=== PATIENT | female | born 1960 | race Two or more races ===

== ENCOUNTER 2021-06-07 16:44 | Inpatient (IN) | payer OTHER ==
[~2021-06-07] VITALS: Ht 154.9 cm; Wt 57.0 kg
[2021-06-07 19:53] LABS: BASOPHILS % (AUTO) 0.4 % (0.0-2.0); EOSINOPHILS % (AUTO) 0.9 % (1.0-6.0); HEMATOCRIT 37.3 % (36-46); HEMOGLOBIN 12.5 g/dL (12.0-16.0); LYMPHOCYTES # (AUTO) 1.6 K/uL (1.0-4.8); LYMPHOCYTES % (AUTO) 22.5 % (22.0-44.0); MEAN CORPUSCULAR HEMOGLOBIN 27.7 pg (26.0-34.0); MEAN CORPUSCULAR HGB CONC 33.4 G/dL (31.0-37.0); MEAN CORPUSCULAR VOLUME 83 fL (80-100); MONOCYTES # (AUTO) 0.5 K/uL (0.1-1.0); MONOCYTES % (AUTO) 6.8 % (2.0-9.0); NEUTROPHILS % (AUTO) 69.4 % (40.0-70.0); PLATELET COUNT (AUTO) 295 K/uL (150-450); RED CELL DISTRIBUTION WIDTH 14.8 % (11.5-14.5)
[2021-06-07] MEDS ORDERED: VANCOMYCIN HCL 1 GM/D5% WATER 200 ML IV ONE (20:00)
[2021-06-07] MEDS ORDERED: PIPERACILLIN SODIUM/TAZOBACTAM 4.5 GM in DEXTROSE 5%-WATER 100 ML IV ONE (20:00)
[2021-06-07 20:10] LABS: ANION GAP 7 mmol/L (8-16); CALCIUM, TOTAL 9.3 mg/dL (8.8-10.5); CARBON DIOXIDE 29 mmol/L (22-29); CHLORIDE 99 mmol/L (98-107); CREATININE 0.93 mg/dL (0.60-1.30); GLOMERULAR FILTR. RATE CALC > 60 mL/min (>60); GLUCOSE,RANDOM 155 mg/dL (70-110); SODIUM SERUM 135 mmol/L (136-145); UREA NITROGEN, BLOOD 18 mg/dL (7-18)
[2021-06-07 20:16] LABS: ALANINE AMINOTRANSFERASE 19 U/L (12-78); ALBUMIN 3.3 g/dL (3.4-5.0); ALKALINE PHOSPHATASE 153 U/L (46-116); ASPARTATE AMINOTRANSFERASE 16 U/L (15-37); BILIRUBIN,TOTAL 0.5 mg/dL (0.1-1.0); TOTAL PROTEIN, SERUM 8.4 g/dL (6.4-8.2)
[2021-06-07 20:19] LABS: LACTIC ACID 1.6 mmol/L (0.4-2.0)
[2021-06-07 21:36] LABS: COVID AG,FIA SOURCE NASAL SWAB
[2021-06-07] MEDS ORDERED: DEXTROSE 50%-WATER 25 GM/50 ML SYRINGE IVP PRN (22:00)
[2021-06-07] MEDS ORDERED: MAGNESIUM HYDROXIDE SUSPENSION 30 ML UDCUP PO PRN (22:00)
[2021-06-07] MEDS ORDERED: ACETAMINOPHEN 325 MG TABLET PO PRN (22:00)
[2021-06-07] MEDS ORDERED: ONDANSETRON HCL 4 MG/2 ML VIAL IVP PRN (22:00)
[2021-06-08] MEDS: HEPARIN SODIUM,PORCINE 5,000 UNITS/ML VIAL SQ SCH ×4 (00:34→23:15)
[2021-06-08] MEDS ORDERED: PIPERACILLIN/TAZO 3.375 GM/D5W 50 ML IV ONE (05:30)
[2021-06-08] MEDS ORDERED: VANCOMYCIN HCL 750 MG in DEXTROSE 5%-WATER 250 ML IV ONE (07:30)
[2021-06-08] MEDS: FAMOTIDINE 20 MG TABLET PO SCH (08:50)
[2021-06-08] MEDS: DOCUSATE SODIUM 100 MG CAPSULE PO SCH ×2 (08:50→20:59)
[2021-06-08] MEDS: VANCOMYCIN HCL 750 MG in DEXTROSE 5%-WATER 250 ML IV SCH ×2 (08:51→21:00)
[2021-06-08] MEDS: PIPERACILLIN/TAZO 3.375 GM/D5W 50 ML IV SCH ×2 (11:15→16:01)
[2021-06-08] MEDS: OxyCODONE HCL/ACETAMINOPHEN 5-325 MG TABLET PO PRN ×2 (11:15→18:18)
[2021-06-08 13:41] LABS: GLUCOSE,POINT OF CARE 222 MG/DL (70-110)
[2021-06-08] MEDS: INSULIN LISPRO 100 UNITS/ML SQ PRN ×3 (13:43→21:37)
[2021-06-08] MEDS ORDERED: FLUO20CA36 PO (18:10)
[2021-06-08] MEDS ORDERED: FLUT16H NASAL (18:10)
[2021-06-08] MEDS ORDERED: ERTU15TA PO (18:10)
[2021-06-08] MEDS ORDERED: PREG75 PO (18:10)
[2021-06-08] MEDS ORDERED: OMEP20 PO (18:10)
[2021-06-08] MEDS ORDERED: LISI-659 PO (18:10)
[2021-06-08 18:21] LABS: GLUCOSE,POINT OF CARE 147 MG/DL (70-110)
[2021-06-08] MEDS ORDERED: SODIUM CHLORIDE 0.9% 500 ML IV ONE (20:57)
[2021-06-08] MEDS: PREGABALIN 75 MG CAPSULE PO SCH (21:00)
[2021-06-08 21:02] VITALS: BP 117/68
[2021-06-08] MEDS: FLUTICASONE PROPIONATE 50 MCG/SPRAY 16 GM NASAL SPRAY NASAL SCH (23:15)
[2021-06-09] MEDS: PIPERACILLIN/TAZO 3.375 GM/D5W 50 ML IV SCH ×5 (00:02→23:39)
[2021-06-09] MEDS ORDERED: PNEUMOCOCCAL VACCINE POLYVALENT 0.5 ML VIAL [PPSV23] IM. ONE (00:45)
[2021-06-09 05:08] VITALS: BP 103/71
[2021-06-09 07:33] LABS: BASOPHILS % (AUTO) 0.4 % (0.0-2.0); EOSINOPHILS % (AUTO) 2.5 % (1.0-6.0); HEMATOCRIT 32.5 % (36-46); HEMOGLOBIN 11.1 g/dL (12.0-16.0); LYMPHOCYTES # (AUTO) 1.6 K/uL (1.0-4.8); LYMPHOCYTES % (AUTO) 25.3 % (22.0-44.0); MEAN CORPUSCULAR HGB CONC 34.1 G/dL (31.0-37.0); MEAN CORPUSCULAR VOLUME 82 fL (80-100); MONOCYTES # (AUTO) 0.6 K/uL (0.1-1.0); MONOCYTES % (AUTO) 9.7 % (2.0-9.0); NEUTROPHILS # (AUTO) 3.9 K/uL (1.8-7.7); NEUTROPHILS % (AUTO) 62.1 % (40.0-70.0); PLATELET COUNT (AUTO) 248 K/uL (150-450); RED BLOOD CELL COUNT(AUTO) 3.95 MIL/uL (4.00-5.20); RED CELL DISTRIBUTION WIDTH 14.7 % (11.5-14.5)
[2021-06-09 07:46] LABS: ANION GAP 10 mmol/L (8-16); CARBON DIOXIDE 28 mmol/L (22-29); CHLORIDE 100 mmol/L (98-107); CREATININE 0.83 mg/dL (0.60-1.30); GLOMERULAR FILTR. RATE CALC > 60 mL/min (>60); GLUCOSE,RANDOM 155 mg/dL (70-110); POTASSIUM 4.2 mmol/L (3.5-5.1); SODIUM SERUM 138 mmol/L (136-145); UREA NITROGEN, BLOOD 17 mg/dL (7-18); VANCOMYCIN,RANDOM 16.1 mcg/mL (25.0-50.0)
[2021-06-09] MEDS: HEPARIN SODIUM,PORCINE 5,000 UNITS/ML VIAL SQ SCH ×3 (08:00→23:39)
[2021-06-09 08:11] VITALS: BP 90/59
[2021-06-09 08:26] LABS: GLUCOMETER DEV NAME(LOC) 6N.1; GLUCOSE,POINT OF CARE 157 MG/DL (70-110)
[2021-06-09 08:26] LABS: GLUCOMETER DEV NAME(LOC) 6N.1; GLUCOSE,POINT OF CARE 151 MG/DL (70-110)
[2021-06-09] MEDS ORDERED: SODIUM CHLORIDE 0.9% 1,000 ML IV ONE (08:30)
[2021-06-09] MEDS: DOCUSATE SODIUM 100 MG CAPSULE PO SCH ×2 (08:32→20:18)
[2021-06-09] MEDS: FAMOTIDINE 20 MG TABLET PO SCH (08:32)
[2021-06-09] MEDS: PREGABALIN 75 MG CAPSULE PO SCH ×2 (08:32→20:18)
[2021-06-09] MEDS: OMEPRAZOLE 20 MG CAPSULE PO SCH (08:32)
[2021-06-09] MEDS: FLUoxetine HCL 20 MG CAPSULE PO SCH (08:32)
[2021-06-09] MEDS: VANCOMYCIN HCL 750 MG in DEXTROSE 5%-WATER 250 ML IV SCH ×2 (08:33→20:18)
[2021-06-09] MEDS: FLUTICASONE PROPIONATE 50 MCG/SPRAY 16 GM NASAL SPRAY NASAL SCH ×2 (08:34→20:18)
[2021-06-09] MEDS ORDERED: RINGERS SOLUTION,LACTATED 1,000 ML IV ONE (09:15)
[2021-06-09] MEDS ORDERED: LIDOCAINE/PF 1% 30 ML VIAL ONE (09:23)
[2021-06-09] MEDS ORDERED: BUPIVACAINE HCL/PF 0.5% 30 ML VIAL ONE (09:23)
[2021-06-09] MEDS ORDERED: ETHYL ALCOHOL 62% ANTISEPTIC NASAL INHALANT 0.6 ML AMPUL NASAL ONE (10:00)
[2021-06-09] MEDS: SODIUM CHLORIDE 0.9% 1,000 ML IV SCH ×2 (11:15→20:18)
[2021-06-09] MEDS ORDERED: PROPOFOL 1% 20 ML VIAL IVP ONE (12:00)
[2021-06-09] MEDS ORDERED: MIDAZOLAM HCL 2 MG/2 ML VIAL IVP ONE (12:00)
[2021-06-09] MEDS ORDERED: 0.9% SODIUM CHLORIDE 10 ML VIAL IVP ONE (12:00)
[2021-06-09] MEDS ORDERED: FentaNYL CITRATE PF 100 MCG/2 ML VIAL IVP ONE (12:00)
[2021-06-09] MEDS ORDERED: LIDOCAINE/PF 2% 5 ML VIAL IM ONE (12:00)
[2021-06-09] MEDS ORDERED: VANCOMYCIN HCL 1 GM/VIAL ONE (12:03)
[2021-06-09] MEDS ORDERED: SEMA0.25 SQ (12:12)
[2021-06-09] MEDS ORDERED: ATOR-2 PO (12:12)
[2021-06-09] MEDS ORDERED: ACET-541 PO (12:12)
[2021-06-09] MEDS ORDERED: FLUT1AER5 IH (12:12)
[2021-06-09] MEDS ORDERED: FentaNYL CITRATE PF 100 MCG/2 ML VIAL IVP PRN (12:15)
[2021-06-09] MEDS ORDERED: HYDROmorphone 2 MG/ML VIAL IVP PRN (12:15)
[2021-06-09] MEDS ORDERED: SODIUM CHLORIDE 0.9% 1,000 ML ONE (13:07)
[2021-06-09 14:27] VITALS: BP 112/60
[2021-06-09] MEDS: OxyCODONE HCL/ACETAMINOPHEN 5-325 MG TABLET PO PRN ×2 (17:28→21:42)
[2021-06-09 18:37] LABS: GLUCOMETER DEV NAME(LOC) 6N.2; GLUCOSE,POINT OF CARE 113 MG/DL (70-110)
[2021-06-09 18:37] LABS: GLUCOMETER DEV NAME(LOC) 6N.2; GLUCOSE,POINT OF CARE 146 MG/DL (70-110)
[2021-06-09] MEDS: OXYGEN THERAPY IH SCH (20:00)
[2021-06-09] MEDS: INSULIN LISPRO 100 UNITS/ML SQ PRN (20:25)
[2021-06-09 20:39] VITALS: BP 103/60
[2021-06-10 04:40] VITALS: BP 114/61
[2021-06-10] MEDS: PIPERACILLIN/TAZO 3.375 GM/D5W 50 ML IV SCH ×4 (07:14→23:38)
[2021-06-10] MEDS: SODIUM CHLORIDE 0.9% 1,000 ML IV SCH ×2 (07:31→16:21)
[2021-06-10] MEDS: MORPHINE SULFATE 2 MG/ML SYRINGE IVP PRN ×3 (07:31→16:22)
[2021-06-10] MEDS: VANCOMYCIN HCL 750 MG in DEXTROSE 5%-WATER 250 ML IV SCH (07:31)
[2021-06-10] MEDS: OXYGEN THERAPY IH SCH ×2 (08:00→20:00)
[2021-06-10 08:01] LABS: ANION GAP 7 mmol/L (8-16); CALCIUM, TOTAL 8.8 mg/dL (8.8-10.5); CARBON DIOXIDE 29 mmol/L (22-29); CHLORIDE 103 mmol/L (98-107); CREATININE 0.81 mg/dL (0.60-1.30); GLOMERULAR FILTR. RATE CALC > 60 mL/min (>60); GLUCOSE,RANDOM 120 mg/dL (70-110); POTASSIUM 4.3 mmol/L (3.5-5.1); SODIUM SERUM 139 mmol/L (136-145); UREA NITROGEN, BLOOD 16 mg/dL (7-18)
[2021-06-10 08:02] LABS: GLUCOMETER DEV NAME(LOC) 6N.1; GLUCOSE,POINT OF CARE 153 MG/DL (70-110)
[2021-06-10 08:02] LABS: GLUCOMETER DEV NAME(LOC) 6N.1; GLUCOSE,POINT OF CARE 105 MG/DL (70-110)
[2021-06-10 08:22] VITALS: BP 101/57
[2021-06-10] MEDS: OMEPRAZOLE 20 MG CAPSULE PO SCH (09:24)
[2021-06-10] MEDS: FAMOTIDINE 20 MG TABLET PO SCH (09:24)
[2021-06-10] MEDS: PREGABALIN 75 MG CAPSULE PO SCH ×2 (09:24→19:47)
[2021-06-10] MEDS: FLUoxetine HCL 20 MG CAPSULE PO SCH (09:24)
[2021-06-10] MEDS: DOCUSATE SODIUM 100 MG CAPSULE PO SCH ×2 (09:24→19:47)
[2021-06-10] MEDS: FLUTICASONE PROPIONATE 50 MCG/SPRAY 16 GM NASAL SPRAY NASAL SCH ×2 (09:25→19:49)
[2021-06-10] MEDS: HEPARIN SODIUM,PORCINE 5,000 UNITS/ML VIAL SQ SCH ×3 (09:25→23:38)
[2021-06-10] MEDS: TIOTROPIUM BROMIDE 18 MCG/INH HANDIHALER [5] IH SCH (09:26)
[2021-06-10] MEDS: OxyCODONE HCL/ACETAMINOPHEN 5-325 MG TABLET PO PRN ×3 (10:08→19:47)
[2021-06-10 11:57] LABS: GLUCOMETER DEV NAME(LOC) 6N.1; GLUCOSE,POINT OF CARE 205 MG/DL (70-110)
[2021-06-10] MEDS: INSULIN LISPRO 100 UNITS/ML SQ PRN ×2 (12:10→19:48)
[2021-06-10 15:34] VITALS: BP 92/50
[2021-06-10 15:48] VITALS: BP 105/64
[2021-06-10 17:52] LABS: GLUCOMETER DEV NAME(LOC) 6N.2; GLUCOSE,POINT OF CARE 116 MG/DL (70-110)
[2021-06-10 19:58] VITALS: BP 107/62
[2021-06-10] MEDS: VANCOMYCIN HCL 1 GM/D5% WATER 200 ML IV SCH (20:00)
[2021-06-11] MEDS: OxyCODONE HCL/ACETAMINOPHEN 5-325 MG TABLET PO PRN ×2 (04:51→20:10)
[2021-06-11] MEDS: PIPERACILLIN/TAZO 3.375 GM/D5W 50 ML IV SCH ×3 (04:55→17:47)
[2021-06-11] MEDS: SODIUM CHLORIDE 0.9% 1,000 ML IV SCH ×2 (04:55→17:47)
[2021-06-11 04:56] VITALS: BP 133/64
[2021-06-11] MEDS: MORPHINE SULFATE 2 MG/ML SYRINGE IVP PRN ×5 (05:10→21:40)
[2021-06-11 06:40] LABS: ANION GAP 1 mmol/L (8-16); CALCIUM, TOTAL 9.3 mg/dL (8.8-10.5); CARBON DIOXIDE 30 mmol/L (22-29); CHLORIDE 104 mmol/L (98-107); CREATININE 0.86 mg/dL (0.60-1.30); GLOMERULAR FILTR. RATE CALC > 60 mL/min (>60); GLUCOSE,RANDOM 139 mg/dL (70-110); POTASSIUM 5.1 mmol/L (3.5-5.1); SODIUM SERUM 135 mmol/L (136-145); UREA NITROGEN, BLOOD 14 mg/dL (7-18)
[2021-06-11 07:47] LABS: GLUCOMETER DEV NAME(LOC) 6N.2; GLUCOSE,POINT OF CARE 143 MG/DL (70-110)
[2021-06-11 07:47] LABS: GLUCOMETER DEV NAME(LOC) 6N.2; GLUCOSE,POINT OF CARE 128 MG/DL (70-110)
[2021-06-11] MEDS: OXYGEN THERAPY IH SCH (08:00)
[2021-06-11 08:02] VITALS: BP 137/61
[2021-06-11] MEDS: PREGABALIN 75 MG CAPSULE PO SCH ×2 (09:15→20:10)
[2021-06-11] MEDS: HEPARIN SODIUM,PORCINE 5,000 UNITS/ML VIAL SQ SCH ×2 (09:15→17:26)
[2021-06-11] MEDS: DOCUSATE SODIUM 100 MG CAPSULE PO SCH ×2 (09:15→20:10)
[2021-06-11] MEDS: OMEPRAZOLE 20 MG CAPSULE PO SCH (09:15)
[2021-06-11] MEDS: FLUoxetine HCL 20 MG CAPSULE PO SCH (09:15)
[2021-06-11] MEDS: FAMOTIDINE 20 MG TABLET PO SCH (09:15)
[2021-06-11] MEDS: TIOTROPIUM BROMIDE 18 MCG/INH HANDIHALER [5] IH SCH (09:17)
[2021-06-11] MEDS: FLUTICASONE PROPIONATE 50 MCG/SPRAY 16 GM NASAL SPRAY NASAL SCH ×2 (09:17→20:10)
[2021-06-11] MEDS: VANCOMYCIN HCL 1 GM/D5% WATER 200 ML IV SCH ×2 (09:37→20:10)
[2021-06-11] MEDS: INSULIN LISPRO 100 UNITS/ML SQ PRN ×2 (11:48→20:24)
[2021-06-11 12:43] VITALS: BP 123/68
[2021-06-11 16:30] VITALS: BP 119/78
[2021-06-11 20:45] VITALS: BP 122/81
[2021-06-11 21:36] LABS: GLUCOMETER DEV NAME(LOC) 5N.1C; GLUCOSE,POINT OF CARE 175 MG/DL (70-110)
[2021-06-12] MEDS: PIPERACILLIN/TAZO 3.375 GM/D5W 50 ML IV SCH ×5 (00:07→23:36)
[2021-06-12] MEDS: HEPARIN SODIUM,PORCINE 5,000 UNITS/ML VIAL SQ SCH ×4 (00:07→23:35)
[2021-06-12] MEDS: OxyCODONE HCL/ACETAMINOPHEN 5-325 MG TABLET PO PRN ×3 (00:14→19:46)
[2021-06-12 00:54] VITALS: BP 119/60
[2021-06-12 04:40] VITALS: BP 122/71
[2021-06-12] MEDS: SODIUM CHLORIDE 0.9% 1,000 ML IV SCH ×3 (05:52→20:25)
[2021-06-12] MEDS: MORPHINE SULFATE 2 MG/ML SYRINGE IVP PRN ×2 (05:52→17:41)
[2021-06-12 07:08] VITALS: BP 137/78
[2021-06-12 07:16] LABS: GLUCOMETER DEV NAME(LOC) 5N.1C; GLUCOSE,POINT OF CARE 123 MG/DL (70-110)
[2021-06-12 07:47] LABS: ANION GAP 3 mmol/L (8-16); CALCIUM, TOTAL 9.2 mg/dL (8.8-10.5); CARBON DIOXIDE 32 mmol/L (22-29); CHLORIDE 104 mmol/L (98-107); CREATININE 0.79 mg/dL (0.60-1.30); GLOMERULAR FILTR. RATE CALC > 60 mL/min (>60); GLUCOSE,RANDOM 131 mg/dL (70-110); POTASSIUM 4.6 mmol/L (3.5-5.1); SODIUM SERUM 139 mmol/L (136-145); UREA NITROGEN, BLOOD 13 mg/dL (7-18); VANCOMYCIN,RANDOM 22.4 mcg/mL (25.0-50.0)
[2021-06-12] MEDS: DOCUSATE SODIUM 100 MG CAPSULE PO SCH ×2 (09:21→19:47)
[2021-06-12] MEDS: FAMOTIDINE 20 MG TABLET PO SCH (09:21)
[2021-06-12] MEDS: OMEPRAZOLE 20 MG CAPSULE PO SCH (09:21)
[2021-06-12] MEDS: PREGABALIN 75 MG CAPSULE PO SCH ×2 (09:21→20:25)
[2021-06-12] MEDS: FLUoxetine HCL 20 MG CAPSULE PO SCH (09:21)
[2021-06-12] MEDS: TIOTROPIUM BROMIDE 18 MCG/INH HANDIHALER [5] IH SCH (09:31)
[2021-06-12 10:55] VITALS: BP 121/77
[2021-06-12] MEDS: OXYGEN THERAPY IH SCH ×2 (11:04→19:47)
[2021-06-12] MEDS: VANCOMYCIN HCL 1 GM/D5% WATER 200 ML IV SCH (11:07)
[2021-06-12] MEDS: FLUTICASONE PROPIONATE 50 MCG/SPRAY 16 GM NASAL SPRAY NASAL SCH ×2 (11:07→19:47)
[2021-06-12 11:56] LABS: GLUCOMETER DEV NAME(LOC) 5N.3; GLUCOSE,POINT OF CARE 122 MG/DL (70-110)
[2021-06-12 11:56] LABS: GLUCOMETER DEV NAME(LOC) 5N.3; GLUCOSE,POINT OF CARE 217 MG/DL (70-110)
[2021-06-12 12:02] LABS: GLUCOMETER DEV NAME(LOC) 5N.3; GLUCOSE,POINT OF CARE 139 MG/DL (70-110)
[2021-06-12] MEDS: INSULIN LISPRO 100 UNITS/ML SQ PRN ×2 (17:57→21:08)
[2021-06-12 19:25] VITALS: BP 104/55
[2021-06-12 19:46] LABS: GLUCOMETER DEV NAME(LOC) 6N.1; GLUCOSE,POINT OF CARE 100 MG/DL (70-110)
[2021-06-12] MEDS: VANCOMYCIN HCL 1.25 GM in DEXTROSE 5%-WATER 250 ML IV SCH (19:47)
[2021-06-12] MEDS: ZOLPIDEM TARTRATE 5 MG TABLET PO PRN (21:08)
[2021-06-13] MEDS: MORPHINE SULFATE 2 MG/ML SYRINGE IVP PRN ×5 (01:21→23:13)
[2021-06-13 01:36] LABS: GLUCOMETER DEV NAME(LOC) 6N.1; GLUCOSE,POINT OF CARE 170 MG/DL (70-110)
[2021-06-13 04:47] VITALS: BP 121/65
[2021-06-13] MEDS: PIPERACILLIN/TAZO 3.375 GM/D5W 50 ML IV SCH ×4 (05:18→23:12)
[2021-06-13 05:51] LABS: GLUCOMETER DEV NAME(LOC) 6N.2; GLUCOSE,POINT OF CARE 121 MG/DL (70-110)
[2021-06-13] MEDS: OXYGEN THERAPY IH SCH ×2 (07:43→20:00)
[2021-06-13] MEDS: SODIUM CHLORIDE 0.9% 1,000 ML IV SCH ×2 (07:43→16:05)
[2021-06-13] MEDS: VANCOMYCIN HCL 1.25 GM in DEXTROSE 5%-WATER 250 ML IV SCH ×2 (07:43→20:03)
[2021-06-13 08:37] VITALS: BP 112/62
[2021-06-13 09:20] LABS: ANION GAP 5 mmol/L (8-16); CARBON DIOXIDE 31 mmol/L (22-29); CHLORIDE 104 mmol/L (98-107); CREATININE 0.79 mg/dL (0.60-1.30); GLOMERULAR FILTR. RATE CALC > 60 mL/min (>60); GLUCOSE,RANDOM 139 mg/dL (70-110); POTASSIUM 4.8 mmol/L (3.5-5.1); SODIUM SERUM 140 mmol/L (136-145); UREA NITROGEN, BLOOD 13 mg/dL (7-18)
[2021-06-13] MEDS: PREGABALIN 75 MG CAPSULE PO SCH ×2 (09:34→20:02)
[2021-06-13] MEDS: HEPARIN SODIUM,PORCINE 5,000 UNITS/ML VIAL SQ SCH ×3 (09:35→23:13)
[2021-06-13] MEDS: FAMOTIDINE 20 MG TABLET PO SCH (09:35)
[2021-06-13] MEDS: OxyCODONE HCL/ACETAMINOPHEN 5-325 MG TABLET PO PRN ×3 (09:35→20:02)
[2021-06-13] MEDS: OMEPRAZOLE 20 MG CAPSULE PO SCH (09:35)
[2021-06-13] MEDS: FLUoxetine HCL 20 MG CAPSULE PO SCH (09:35)
[2021-06-13] MEDS: DOCUSATE SODIUM 100 MG CAPSULE PO SCH ×2 (09:35→20:02)
[2021-06-13] MEDS: FLUTICASONE PROPIONATE 50 MCG/SPRAY 16 GM NASAL SPRAY NASAL SCH ×2 (10:40→20:02)
[2021-06-13] MEDS: TIOTROPIUM BROMIDE 18 MCG/INH HANDIHALER [5] IH SCH (10:40)
[2021-06-13 15:16] LABS: GLUCOMETER DEV NAME(LOC) 6N.2; GLUCOSE,POINT OF CARE 129 MG/DL (70-110)
[2021-06-13 16:24] VITALS: BP 122/70
[2021-06-13] MEDS: INSULIN LISPRO 100 UNITS/ML SQ PRN (18:17)
[2021-06-13 19:56] LABS: GLUCOMETER DEV NAME(LOC) 6N.1; GLUCOSE,POINT OF CARE 155 MG/DL (70-110)
[2021-06-13] MEDS: ASCORBIC ACID 500 MG TABLET PO SCH (20:02)
[2021-06-13 21:15] VITALS: BP 95/66
[2021-06-13 21:46] LABS: GLUCOMETER DEV NAME(LOC) 6N.1; GLUCOSE,POINT OF CARE 126 MG/DL (70-110)
[2021-06-13] MEDS: ZOLPIDEM TARTRATE 5 MG TABLET PO PRN (22:19)
[2021-06-14] MEDS: SODIUM CHLORIDE 0.9% 1,000 ML IV SCH ×2 (03:30→21:15)
[2021-06-14] MEDS: MORPHINE SULFATE 2 MG/ML SYRINGE IVP PRN ×3 (03:30→22:25)
[2021-06-14] MEDS: PIPERACILLIN/TAZO 3.375 GM/D5W 50 ML IV SCH ×2 (05:27→11:50)
[2021-06-14 06:01] LABS: GLUCOMETER DEV NAME(LOC) 6N.1; GLUCOSE,POINT OF CARE 124 MG/DL (70-110)
[2021-06-14 06:38] VITALS: BP 112/69
[2021-06-14 07:16] LABS: ANION GAP 14 mmol/L (8-16); CALCIUM, TOTAL 8.2 mg/dL (8.8-10.5); CARBON DIOXIDE 27 mmol/L (22-29); CHLORIDE 100 mmol/L (98-107); CREATININE 0.92 mg/dL (0.60-1.30); GLOMERULAR FILTR. RATE CALC > 60 mL/min (>60); GLUCOSE,RANDOM 157 mg/dL (70-110); POTASSIUM 4.3 mmol/L (3.5-5.1); SODIUM SERUM 141 mmol/L (136-145); UREA NITROGEN, BLOOD 14 mg/dL (7-18)
[2021-06-14 07:48] LABS: VANCOMYCIN,RANDOM 26.5 mcg/mL (25.0-50.0)
[2021-06-14] MEDS ORDERED: VANCOMYCIN HCL 1 GM/D5% WATER 200 ML IV SCH (08:00)
[2021-06-14] MEDS: OxyCODONE HCL/ACETAMINOPHEN 5-325 MG TABLET PO PRN ×2 (08:15→18:34)
[2021-06-14] MEDS: TIOTROPIUM BROMIDE 18 MCG/INH HANDIHALER [5] IH SCH (08:16)
[2021-06-14] MEDS: FLUTICASONE PROPIONATE 50 MCG/SPRAY 16 GM NASAL SPRAY NASAL SCH ×2 (08:17→21:07)
[2021-06-14] MEDS: FLUoxetine HCL 20 MG CAPSULE PO SCH (08:17)
[2021-06-14] MEDS: MULTIVITAMINS WITH MINERALS, THERAPEUTIC TABLET PO SCH (08:18)
[2021-06-14] MEDS: ASCORBIC ACID 500 MG TABLET PO SCH ×2 (08:18→21:07)
[2021-06-14] MEDS: OMEPRAZOLE 20 MG CAPSULE PO SCH (08:18)
[2021-06-14] MEDS: FAMOTIDINE 20 MG TABLET PO SCH (08:18)
[2021-06-14] MEDS: PREGABALIN 75 MG CAPSULE PO SCH ×2 (08:18→21:07)
[2021-06-14] MEDS: DOCUSATE SODIUM 100 MG CAPSULE PO SCH ×2 (08:18→21:00)
[2021-06-14] MEDS: HEPARIN SODIUM,PORCINE 5,000 UNITS/ML VIAL SQ SCH ×3 (08:19→23:30)
[2021-06-14 08:21] VITALS: BP 102/57
[2021-06-14] MEDS: OXYGEN THERAPY IH SCH ×2 (09:23→21:07)
[2021-06-14 14:11] LABS: GLUCOMETER DEV NAME(LOC) 6N.1; GLUCOSE,POINT OF CARE 125 MG/DL (70-110)
[2021-06-14 15:37] VITALS: BP 130/77
[2021-06-14] MEDS: INSULIN LISPRO 100 UNITS/ML SQ PRN (16:36)
[2021-06-14] MEDS: CeFAZolin 2 GM/DEXTROSE 50 ML IV SCH (17:22)
[2021-06-14 19:02] LABS: GLUCOMETER DEV NAME(LOC) 6N.2; GLUCOSE,POINT OF CARE 142 MG/DL (70-110)
[2021-06-14 19:57] VITALS: BP 122/69
[2021-06-14 23:11] LABS: GLUCOMETER DEV NAME(LOC) 6N.2; GLUCOSE,POINT OF CARE 131 MG/DL (70-110)
[2021-06-15] MEDS: CeFAZolin 2 GM/DEXTROSE 50 ML IV SCH ×3 (01:10→17:59)
[2021-06-15] MEDS: OxyCODONE HCL/ACETAMINOPHEN 5-325 MG TABLET PO PRN ×3 (04:23→20:24)
[2021-06-15 04:39] VITALS: BP 135/75
[2021-06-15] MEDS: INSULIN LISPRO 100 UNITS/ML SQ PRN ×4 (05:14→21:21)
[2021-06-15 06:31] LABS: GLUCOMETER DEV NAME(LOC) 6N.2; GLUCOSE,POINT OF CARE 146 MG/DL (70-110)
[2021-06-15 07:45] VITALS: BP 113/56
[2021-06-15] MEDS: OXYGEN THERAPY IH SCH ×2 (08:00→20:26)
[2021-06-15] MEDS: DOCUSATE SODIUM 100 MG CAPSULE PO SCH ×2 (09:00→20:24)
[2021-06-15] MEDS: OMEPRAZOLE 20 MG CAPSULE PO SCH (09:01)
[2021-06-15] MEDS: PREGABALIN 75 MG CAPSULE PO SCH ×2 (09:01→20:23)
[2021-06-15] MEDS: FAMOTIDINE 20 MG TABLET PO SCH (09:01)
[2021-06-15] MEDS: FLUoxetine HCL 20 MG CAPSULE PO SCH (09:01)
[2021-06-15] MEDS: HEPARIN SODIUM,PORCINE 5,000 UNITS/ML VIAL SQ SCH ×3 (09:01→23:10)
[2021-06-15] MEDS: MULTIVITAMINS WITH MINERALS, THERAPEUTIC TABLET PO SCH (09:01)
[2021-06-15] MEDS: ASCORBIC ACID 500 MG TABLET PO SCH ×2 (09:02→20:23)
[2021-06-15] MEDS: TIOTROPIUM BROMIDE 18 MCG/INH HANDIHALER [5] IH SCH (09:02)
[2021-06-15] MEDS: FLUTICASONE PROPIONATE 50 MCG/SPRAY 16 GM NASAL SPRAY NASAL SCH ×2 (09:02→20:23)
[2021-06-15] MEDS: MORPHINE SULFATE 2 MG/ML SYRINGE IVP PRN ×2 (09:02→15:39)
[2021-06-15] MEDS: SODIUM CHLORIDE 0.9% 1,000 ML IV SCH ×2 (10:17→15:38)
[2021-06-15 14:46] LABS: GLUCOMETER DEV NAME(LOC) 6N.2; GLUCOSE,POINT OF CARE 175 MG/DL (70-110)
[2021-06-15 16:32] VITALS: BP 128/75
[2021-06-15 20:10] VITALS: BP 144/71
[2021-06-15] MEDS: BISMUTH SUBSALICYLATE 524 MG/30 ML SUSPENSION UDCUP PO PRN (21:11)
[2021-06-16] MEDS: MORPHINE SULFATE 2 MG/ML SYRINGE IVP PRN ×2 (00:11→05:46)
[2021-06-16] MEDS: SODIUM CHLORIDE 0.9% 1,000 ML IV SCH ×2 (00:12→14:12)
[2021-06-16 01:31] LABS: GLUCOMETER DEV NAME(LOC) 6N.1; GLUCOSE,POINT OF CARE 152 MG/DL (70-110)
[2021-06-16 01:31] LABS: GLUCOMETER DEV NAME(LOC) 6N.2; GLUCOSE,POINT OF CARE 147 MG/DL (70-110)
[2021-06-16] MEDS: CeFAZolin 2 GM/DEXTROSE 50 ML IV SCH ×2 (01:37→09:26)
[2021-06-16] MEDS: BISMUTH SUBSALICYLATE 524 MG/30 ML SUSPENSION UDCUP PO PRN ×3 (03:31→21:08)
[2021-06-16 04:10] VITALS: BP 129/69
[2021-06-16] MEDS: INSULIN LISPRO 100 UNITS/ML SQ PRN ×2 (05:50→21:10)
[2021-06-16 07:39] VITALS: BP 168/71
[2021-06-16] MEDS: FAMOTIDINE 20 MG TABLET PO SCH (09:00)
[2021-06-16] MEDS: DOCUSATE SODIUM 100 MG CAPSULE PO SCH ×2 (09:00→21:00)
[2021-06-16 09:21] LABS: GLUCOMETER DEV NAME(LOC) 6N.1; GLUCOSE,POINT OF CARE 146 MG/DL (70-110)
[2021-06-16] MEDS: FLUTICASONE PROPIONATE 50 MCG/SPRAY 16 GM NASAL SPRAY NASAL SCH ×2 (09:25→21:09)
[2021-06-16] MEDS: ASCORBIC ACID 500 MG TABLET PO SCH ×2 (09:26→21:08)
[2021-06-16] MEDS: TIOTROPIUM BROMIDE 18 MCG/INH HANDIHALER [5] IH SCH (09:26)
[2021-06-16] MEDS: PREGABALIN 75 MG CAPSULE PO SCH ×2 (09:26→21:07)
[2021-06-16] MEDS: HEPARIN SODIUM,PORCINE 5,000 UNITS/ML VIAL SQ SCH ×3 (09:26→23:42)
[2021-06-16] MEDS: MULTIVITAMINS WITH MINERALS, THERAPEUTIC TABLET PO SCH (09:27)
[2021-06-16] MEDS: OMEPRAZOLE 20 MG CAPSULE PO SCH (09:27)
[2021-06-16] MEDS: FLUoxetine HCL 20 MG CAPSULE PO SCH (09:32)
[2021-06-16] MEDS: OxyCODONE HCL/ACETAMINOPHEN 5-325 MG TABLET PO PRN ×3 (09:33→21:08)
[2021-06-16 12:40] LABS: HEMATOCRIT 33.4 % (36-46); HEMOGLOBIN 11.1 g/dL (12.0-16.0); MEAN CORPUSCULAR HEMOGLOBIN 27.8 pg (26.0-34.0); MEAN CORPUSCULAR HGB CONC 33.3 G/dL (31.0-37.0); MEAN CORPUSCULAR VOLUME 83 fL (80-100); PLATELET COUNT (AUTO) 282 K/uL (150-450); RED CELL DISTRIBUTION WIDTH 14.5 % (11.5-14.5)
[2021-06-16 12:42] LABS: GLUCOMETER DEV NAME(LOC) 6N.2; GLUCOSE,POINT OF CARE 126 MG/DL (70-110)
[2021-06-16 13:04] LABS: ANION GAP 5 mmol/L (8-16); CALCIUM, TOTAL 8.6 mg/dL (8.8-10.5); CARBON DIOXIDE 27 mmol/L (22-29); CHLORIDE 106 mmol/L (98-107); CREATININE 0.64 mg/dL (0.60-1.30); GLOMERULAR FILTR. RATE CALC > 60 mL/min (>60); GLUCOSE,RANDOM 132 mg/dL (70-110); SODIUM SERUM 138 mmol/L (136-145); UREA NITROGEN, BLOOD 16 mg/dL (7-18)
[2021-06-16 13:20] LABS: BAND NEUTROPHILS % (MANUAL) 2 % (0-5); EOSINOPHILS % (MANUAL) 1 % (1-6); LYMPHOCYTES % (MANUAL) 30 % (22-44); MONOCYTES % (MANUAL) 5 % (2-9); SEGMENTED NEUTROPHILS % 62 % (40-70)
[2021-06-16] MEDS: HYDROCHLOROTHIAZIDE 25 MG TABLET PO SCH (13:30)
[2021-06-16] MEDS: LISINOPRIL 20 MG TABLET PO SCH (14:17)
[2021-06-16 15:30] VITALS: BP 123/72
[2021-06-16 17:37] LABS: GLUCOMETER DEV NAME(LOC) 6N.1; GLUCOSE,POINT OF CARE 140 MG/DL (70-110)
[2021-06-16 19:37] VITALS: BP 130/89
[2021-06-16] MEDS: OXYGEN THERAPY IH SCH (20:00)
[2021-06-16 22:46] LABS: GLUCOMETER DEV NAME(LOC) 6N.2; GLUCOSE,POINT OF CARE 156 MG/DL (70-110)
[2021-06-17] MEDS: MORPHINE SULFATE 2 MG/ML SYRINGE IVP PRN (00:11)
[2021-06-17] MEDS: CeFAZolin 2 GM/DEXTROSE 50 ML IV SCH ×3 (01:02→17:04)
[2021-06-17] MEDS: SODIUM CHLORIDE 0.9% 1,000 ML IV SCH ×3 (01:02→22:20)
[2021-06-17 04:31] VITALS: BP 116/73
[2021-06-17 07:52] VITALS: BP 146/81
[2021-06-17] MEDS: OXYGEN THERAPY IH SCH ×2 (08:00→20:00)
[2021-06-17] MEDS: LISINOPRIL 20 MG TABLET PO SCH (08:21)
[2021-06-17] MEDS: MULTIVITAMINS WITH MINERALS, THERAPEUTIC TABLET PO SCH (08:21)
[2021-06-17] MEDS: OMEPRAZOLE 20 MG CAPSULE PO SCH (08:21)
[2021-06-17] MEDS: DOCUSATE SODIUM 100 MG CAPSULE PO SCH ×2 (08:21→21:00)
[2021-06-17] MEDS: FAMOTIDINE 20 MG TABLET PO SCH (08:21)
[2021-06-17] MEDS: OxyCODONE HCL/ACETAMINOPHEN 5-325 MG TABLET PO PRN ×3 (08:21→22:15)
[2021-06-17] MEDS: HYDROCHLOROTHIAZIDE 25 MG TABLET PO SCH (08:22)
[2021-06-17] MEDS: PREGABALIN 75 MG CAPSULE PO SCH ×2 (08:24→22:14)
[2021-06-17] MEDS: HEPARIN SODIUM,PORCINE 5,000 UNITS/ML VIAL SQ SCH ×2 (08:25→16:31)
[2021-06-17] MEDS: ASCORBIC ACID 500 MG TABLET PO SCH ×2 (08:25→22:14)
[2021-06-17] MEDS: FLUoxetine HCL 20 MG CAPSULE PO SCH (08:33)
[2021-06-17] MEDS: FLUTICASONE PROPIONATE 50 MCG/SPRAY 16 GM NASAL SPRAY NASAL SCH ×2 (08:34→22:15)
[2021-06-17 09:06] LABS: GLUCOMETER DEV NAME(LOC) 6N.1; GLUCOSE,POINT OF CARE 133 MG/DL (70-110)
[2021-06-17] MEDS: TIOTROPIUM BROMIDE 18 MCG/INH HANDIHALER [5] IH SCH (09:43)
[2021-06-17] MEDS ORDERED: BISACODYL 10 MG RECTAL RECTAL SUPPOSITORY PR PRN (11:15)
[2021-06-17] MEDS: INSULIN LISPRO 100 UNITS/ML SQ PRN ×3 (12:08→22:07)
[2021-06-17 13:41] LABS: GLUCOMETER DEV NAME(LOC) 6N.2; GLUCOSE,POINT OF CARE 144 MG/DL (70-110)
[2021-06-17] MEDS: LACTOBACILLUS ACIDOPHILUS/BULGARICUS TABLET PO SCH ×2 (14:13→22:14)
[2021-06-17 15:58] VITALS: BP 123/75
[2021-06-17 17:46] LABS: GLUCOMETER DEV NAME(LOC) 6N.1; GLUCOSE,POINT OF CARE 141 MG/DL (70-110)
[2021-06-17 20:30] VITALS: BP 129/73
[2021-06-17] MEDS: BISMUTH SUBSALICYLATE 524 MG/30 ML SUSPENSION UDCUP PO PRN (22:14)
[2021-06-18] MEDS: HEPARIN SODIUM,PORCINE 5,000 UNITS/ML VIAL SQ SCH ×3 (00:59→15:36)
[2021-06-18] MEDS: SODIUM CHLORIDE 0.9% 1,000 ML IV SCH ×3 (02:27→20:31)
[2021-06-18] MEDS: CeFAZolin 2 GM/DEXTROSE 50 ML IV SCH ×3 (02:27→16:56)
[2021-06-18 04:45] VITALS: BP 114/70
[2021-06-18 06:43] LABS: BASOPHILS % (AUTO) 0.5 % (0.0-2.0); EOSINOPHILS % (AUTO) 3.4 % (1.0-6.0); HEMATOCRIT 33.5 % (36-46); HEMOGLOBIN 11.2 g/dL (12.0-16.0); LYMPHOCYTES # (AUTO) 1.9 K/uL (1.0-4.8); LYMPHOCYTES % (AUTO) 36.7 % (22.0-44.0); MEAN CORPUSCULAR HGB CONC 33.6 G/dL (31.0-37.0); MEAN CORPUSCULAR VOLUME 83 fL (80-100); MONOCYTES # (AUTO) 0.5 K/uL (0.1-1.0); MONOCYTES % (AUTO) 8.9 % (2.0-9.0); NEUTROPHILS # (AUTO) 2.6 K/uL (1.8-7.7); NEUTROPHILS % (AUTO) 50.5 % (40.0-70.0); PLATELET COUNT (AUTO) 285 K/uL (150-450); RED BLOOD CELL COUNT(AUTO) 4.01 MIL/uL (4.00-5.20); RED CELL DISTRIBUTION WIDTH 15.2 % (11.5-14.5)
[2021-06-18 07:06] LABS: GLUCOMETER DEV NAME(LOC) 6N.1; GLUCOSE,POINT OF CARE 127 MG/DL (70-110)
[2021-06-18 07:06] LABS: GLUCOMETER DEV NAME(LOC) 6N.2; GLUCOSE,POINT OF CARE 206 MG/DL (70-110)
[2021-06-18 07:12] LABS: ALANINE AMINOTRANSFERASE 31 U/L (12-78); ALBUMIN 2.4 g/dL (3.4-5.0); ALKALINE PHOSPHATASE 154 U/L (46-116); ANION GAP 6 mmol/L (8-16); ASPARTATE AMINOTRANSFERASE 29 U/L (15-37); BILIRUBIN,TOTAL 0.2 mg/dL (0.1-1.0); CALCIUM, TOTAL 8.6 mg/dL (8.8-10.5); CARBON DIOXIDE 27 mmol/L (22-29); CHLORIDE 106 mmol/L (98-107); CREATININE 0.63 mg/dL (0.60-1.30); GLOMERULAR FILTR. RATE CALC > 60 mL/min (>60); GLUCOSE,RANDOM 134 mg/dL (70-110); POTASSIUM 3.6 mmol/L (3.5-5.1); SODIUM SERUM 139 mmol/L (136-145); TOTAL PROTEIN, SERUM 6.4 g/dL (6.4-8.2); UREA NITROGEN, BLOOD 16 mg/dL (7-18)
[2021-06-18 07:58] VITALS: BP 119/73
[2021-06-18] MEDS: OXYGEN THERAPY IH SCH ×2 (08:00→20:18)
[2021-06-18] MEDS: OMEPRAZOLE 20 MG CAPSULE PO SCH (08:15)
[2021-06-18] MEDS: MULTIVITAMINS WITH MINERALS, THERAPEUTIC TABLET PO SCH (08:15)
[2021-06-18] MEDS: PREGABALIN 75 MG CAPSULE PO SCH ×2 (08:15→20:28)
[2021-06-18] MEDS: ASCORBIC ACID 500 MG TABLET PO SCH ×2 (08:15→20:28)
[2021-06-18] MEDS: HYDROCHLOROTHIAZIDE 25 MG TABLET PO SCH (08:16)
[2021-06-18] MEDS: FAMOTIDINE 20 MG TABLET PO SCH (08:16)
[2021-06-18] MEDS: FLUTICASONE PROPIONATE 50 MCG/SPRAY 16 GM NASAL SPRAY NASAL SCH ×2 (08:16→20:27)
[2021-06-18] MEDS: DOCUSATE SODIUM 100 MG CAPSULE PO SCH ×2 (08:17→20:28)
[2021-06-18] MEDS: TIOTROPIUM BROMIDE 18 MCG/INH HANDIHALER [5] IH SCH (08:17)
[2021-06-18] MEDS: LISINOPRIL 20 MG TABLET PO SCH (09:00)
[2021-06-18] MEDS: FLUoxetine HCL 20 MG CAPSULE PO SCH (10:32)
[2021-06-18] MEDS: LACTOBACILLUS ACIDOPHILUS/BULGARICUS TABLET PO SCH ×2 (10:32→20:28)
[2021-06-18 11:51] LABS: GLUCOMETER DEV NAME(LOC) 6N.2; GLUCOSE,POINT OF CARE 193 MG/DL (70-110)
[2021-06-18] MEDS: INSULIN LISPRO 100 UNITS/ML SQ PRN ×3 (11:51→20:40)
[2021-06-18 16:40] VITALS: BP 116/77
[2021-06-18 18:01] LABS: GLUCOMETER DEV NAME(LOC) 6N.1; GLUCOSE,POINT OF CARE 146 MG/DL (70-110)
[2021-06-18 20:14] VITALS: BP 134/74
[2021-06-18] MEDS: OxyCODONE HCL/ACETAMINOPHEN 5-325 MG TABLET PO PRN (20:29)
[2021-06-18 22:51] LABS: GLUCOMETER DEV NAME(LOC) 6N.2; GLUCOSE,POINT OF CARE 221 MG/DL (70-110)
[2021-06-19] MEDS: ZOLPIDEM TARTRATE 5 MG TABLET PO PRN ×2 (00:44→21:27)
[2021-06-19] MEDS: BISMUTH SUBSALICYLATE 524 MG/30 ML SUSPENSION UDCUP PO PRN ×3 (00:44→21:27)
[2021-06-19] MEDS: HEPARIN SODIUM,PORCINE 5,000 UNITS/ML VIAL SQ SCH ×4 (00:49→23:05)
[2021-06-19] MEDS: CeFAZolin 2 GM/DEXTROSE 50 ML IV SCH ×3 (01:11→17:29)
[2021-06-19] MEDS: INSULIN LISPRO 100 UNITS/ML SQ PRN ×4 (05:59→21:06)
[2021-06-19] MEDS: OxyCODONE HCL/ACETAMINOPHEN 5-325 MG TABLET PO PRN ×3 (06:11→19:36)
[2021-06-19 07:06] LABS: GLUCOMETER DEV NAME(LOC) 6N.2; GLUCOSE,POINT OF CARE 175 MG/DL (70-110)
[2021-06-19 08:06] VITALS: BP 121/71
[2021-06-19] MEDS: TIOTROPIUM BROMIDE 18 MCG/INH HANDIHALER [5] IH SCH (08:15)
[2021-06-19] MEDS: FLUTICASONE PROPIONATE 50 MCG/SPRAY 16 GM NASAL SPRAY NASAL SCH ×2 (08:15→19:36)
[2021-06-19] MEDS: DOCUSATE SODIUM 100 MG CAPSULE PO SCH ×2 (08:16→20:03)
[2021-06-19] MEDS: LACTOBACILLUS ACIDOPHILUS/BULGARICUS TABLET PO SCH ×2 (08:16→20:03)
[2021-06-19] MEDS: PREGABALIN 75 MG CAPSULE PO SCH ×2 (08:17→20:03)
[2021-06-19] MEDS: MULTIVITAMINS WITH MINERALS, THERAPEUTIC TABLET PO SCH (08:17)
[2021-06-19] MEDS: ASCORBIC ACID 500 MG TABLET PO SCH ×2 (08:17→20:04)
[2021-06-19] MEDS: FLUoxetine HCL 20 MG CAPSULE PO SCH (08:17)
[2021-06-19] MEDS: LISINOPRIL 20 MG TABLET PO SCH (08:17)
[2021-06-19] MEDS: HYDROCHLOROTHIAZIDE 25 MG TABLET PO SCH (08:17)
[2021-06-19] MEDS: FAMOTIDINE 20 MG TABLET PO SCH (08:17)
[2021-06-19] MEDS: OMEPRAZOLE 20 MG CAPSULE PO SCH (08:17)
[2021-06-19] MEDS: OXYGEN THERAPY IH SCH ×2 (08:18→19:36)
[2021-06-19] MEDS: SODIUM CHLORIDE 0.9% 1,000 ML IV SCH ×2 (10:32→23:05)
[2021-06-19 16:02] VITALS: BP 133/67
[2021-06-19 19:51] LABS: GLUCOMETER DEV NAME(LOC) 6N.1; GLUCOSE,POINT OF CARE 188 MG/DL (70-110)
[2021-06-19 19:52] LABS: GLUCOMETER DEV NAME(LOC) 6N.1; GLUCOSE,POINT OF CARE 170 MG/DL (70-110)
[2021-06-19 20:35] VITALS: BP 124/64
[2021-06-19 21:11] LABS: GLUCOMETER DEV NAME(LOC) 6N.1; GLUCOSE,POINT OF CARE 263 MG/DL (70-110)
[2021-06-20] MEDS: CeFAZolin 2 GM/DEXTROSE 50 ML IV SCH ×3 (01:04→17:32)
[2021-06-20 05:06] VITALS: BP 118/72
[2021-06-20] MEDS: INSULIN LISPRO 100 UNITS/ML SQ PRN ×3 (06:05→17:32)
[2021-06-20] MEDS: OxyCODONE HCL/ACETAMINOPHEN 5-325 MG TABLET PO PRN ×4 (06:06→19:55)
[2021-06-20 07:11] LABS: GLUCOMETER DEV NAME(LOC) 6N.1; GLUCOSE,POINT OF CARE 167 MG/DL (70-110)
[2021-06-20] MEDS: LACTOBACILLUS ACIDOPHILUS/BULGARICUS TABLET PO SCH ×2 (07:52→21:37)
[2021-06-20] MEDS: PREGABALIN 75 MG CAPSULE PO SCH ×2 (07:52→20:06)
[2021-06-20] MEDS: TIOTROPIUM BROMIDE 18 MCG/INH HANDIHALER [5] IH SCH (07:52)
[2021-06-20] MEDS: FLUTICASONE PROPIONATE 50 MCG/SPRAY 16 GM NASAL SPRAY NASAL SCH ×2 (07:52→19:53)
[2021-06-20] MEDS: SODIUM CHLORIDE 0.9% 1,000 ML IV SCH ×2 (07:52→19:53)
[2021-06-20] MEDS: OMEPRAZOLE 20 MG CAPSULE PO SCH (07:53)
[2021-06-20] MEDS: MULTIVITAMINS WITH MINERALS, THERAPEUTIC TABLET PO SCH (07:53)
[2021-06-20] MEDS: LISINOPRIL 20 MG TABLET PO SCH (07:53)
[2021-06-20] MEDS: ASCORBIC ACID 500 MG TABLET PO SCH ×2 (07:53→19:55)
[2021-06-20] MEDS: HYDROCHLOROTHIAZIDE 25 MG TABLET PO SCH (07:53)
[2021-06-20] MEDS: OXYGEN THERAPY IH SCH ×2 (07:54→19:54)
[2021-06-20] MEDS: HEPARIN SODIUM,PORCINE 5,000 UNITS/ML VIAL SQ SCH ×3 (07:54→23:06)
[2021-06-20] MEDS: FLUoxetine HCL 20 MG CAPSULE PO SCH (07:56)
[2021-06-20] MEDS: BISMUTH SUBSALICYLATE 524 MG/30 ML SUSPENSION UDCUP PO PRN ×2 (07:56→22:18)
[2021-06-20 08:13] VITALS: BP 123/71
[2021-06-20] MEDS: DOCUSATE SODIUM 100 MG CAPSULE PO SCH ×2 (09:00→19:55)
[2021-06-20] MEDS: FAMOTIDINE 20 MG TABLET PO SCH (10:26)
[2021-06-20 11:51] LABS: GLUCOMETER DEV NAME(LOC) 6N.1; GLUCOSE,POINT OF CARE 141 MG/DL (70-110)
[2021-06-20 16:32] VITALS: BP 109/67
[2021-06-20 18:26] LABS: GLUCOMETER DEV NAME(LOC) 6N.2; GLUCOSE,POINT OF CARE 158 MG/DL (70-110)
[2021-06-20 19:55] VITALS: BP 143/78
[2021-06-20] MEDS: ZOLPIDEM TARTRATE 5 MG TABLET PO PRN (21:37)
[2021-06-21] MEDS: CeFAZolin 2 GM/DEXTROSE 50 ML IV SCH ×3 (01:12→18:21)
[2021-06-21] MEDS: SODIUM CHLORIDE 0.9% 1,000 ML IV SCH ×3 (03:15→23:00)
[2021-06-21 03:21] LABS: GLUCOMETER DEV NAME(LOC) 6N.2; GLUCOSE,POINT OF CARE 111 MG/DL (70-110)
[2021-06-21 04:55] VITALS: BP 113/60
[2021-06-21] MEDS: INSULIN LISPRO 100 UNITS/ML SQ PRN ×3 (05:55→20:54)
[2021-06-21 06:06] LABS: GLUCOMETER DEV NAME(LOC) 6N.2; GLUCOSE,POINT OF CARE 141 MG/DL (70-110)
[2021-06-21] MEDS: OXYGEN THERAPY IH SCH (08:00)
[2021-06-21 08:39] VITALS: BP 140/76
[2021-06-21] MEDS: OxyCODONE HCL/ACETAMINOPHEN 5-325 MG TABLET PO PRN ×3 (08:49→22:43)
[2021-06-21] MEDS: FLUTICASONE PROPIONATE 50 MCG/SPRAY 16 GM NASAL SPRAY NASAL SCH ×2 (08:49→20:37)
[2021-06-21] MEDS: FAMOTIDINE 20 MG TABLET PO SCH (08:50)
[2021-06-21] MEDS: HYDROCHLOROTHIAZIDE 25 MG TABLET PO SCH (08:50)
[2021-06-21] MEDS: MULTIVITAMINS WITH MINERALS, THERAPEUTIC TABLET PO SCH (08:50)
[2021-06-21] MEDS: OMEPRAZOLE 20 MG CAPSULE PO SCH (08:50)
[2021-06-21] MEDS: FLUoxetine HCL 20 MG CAPSULE PO SCH (08:50)
[2021-06-21] MEDS: LACTOBACILLUS ACIDOPHILUS/BULGARICUS TABLET PO SCH ×2 (08:50→20:36)
[2021-06-21] MEDS: ASCORBIC ACID 500 MG TABLET PO SCH ×2 (08:50→20:36)
[2021-06-21] MEDS: LISINOPRIL 20 MG TABLET PO SCH (08:50)
[2021-06-21] MEDS: PREGABALIN 75 MG CAPSULE PO SCH ×2 (08:51→20:37)
[2021-06-21] MEDS: HEPARIN SODIUM,PORCINE 5,000 UNITS/ML VIAL SQ SCH ×2 (08:51→18:17)
[2021-06-21] MEDS: DOCUSATE SODIUM 100 MG CAPSULE PO SCH ×2 (08:51→20:35)
[2021-06-21] MEDS: TIOTROPIUM BROMIDE 18 MCG/INH HANDIHALER [5] IH SCH (08:54)
[2021-06-21 16:18] VITALS: BP 129/73
[2021-06-21] MEDS ORDERED: LORazepam 0.5 MG TABLET PO ONE (17:00)
[2021-06-21 20:16] VITALS: BP 128/71
[2021-06-21] MEDS: ZOLPIDEM TARTRATE 5 MG TABLET PO PRN (21:56)
[2021-06-21] MEDS: BISMUTH SUBSALICYLATE 524 MG/30 ML SUSPENSION UDCUP PO PRN (22:43)
[2021-06-21 23:11] LABS: GLUCOMETER DEV NAME(LOC) 6N.2; GLUCOSE,POINT OF CARE 183 MG/DL (70-110)
[2021-06-22] MEDS: HEPARIN SODIUM,PORCINE 5,000 UNITS/ML VIAL SQ SCH ×4 (00:05→23:01)
[2021-06-22] MEDS: CeFAZolin 2 GM/DEXTROSE 50 ML IV SCH ×3 (02:29→18:33)
[2021-06-22 05:23] VITALS: BP 114/72
[2021-06-22] MEDS: INSULIN LISPRO 100 UNITS/ML SQ PRN ×3 (05:53→20:43)
[2021-06-22] MEDS: BISMUTH SUBSALICYLATE 524 MG/30 ML SUSPENSION UDCUP PO PRN ×2 (06:25→16:30)
[2021-06-22] MEDS: OxyCODONE HCL/ACETAMINOPHEN 5-325 MG TABLET PO PRN ×4 (06:26→20:39)
[2021-06-22 07:17] LABS: GLUCOMETER DEV NAME(LOC) 6N.2; GLUCOSE,POINT OF CARE 228 MG/DL (70-110)
[2021-06-22] MEDS: OXYGEN THERAPY IH SCH ×2 (08:00→20:00)
[2021-06-22 08:30] VITALS: BP 115/67
[2021-06-22] MEDS: FLUTICASONE PROPIONATE 50 MCG/SPRAY 16 GM NASAL SPRAY NASAL SCH ×2 (08:51→20:39)
[2021-06-22] MEDS: SODIUM CHLORIDE 0.9% 1,000 ML IV SCH (08:52)
[2021-06-22] MEDS: LACTOBACILLUS ACIDOPHILUS/BULGARICUS TABLET PO SCH ×2 (08:52→20:39)
[2021-06-22] MEDS: TIOTROPIUM BROMIDE 18 MCG/INH HANDIHALER [5] IH SCH (08:53)
[2021-06-22] MEDS: DOCUSATE SODIUM 100 MG CAPSULE PO SCH ×3 (08:54→20:06)
[2021-06-22] MEDS: HYDROCHLOROTHIAZIDE 25 MG TABLET PO SCH (08:54)
[2021-06-22] MEDS: MULTIVITAMINS WITH MINERALS, THERAPEUTIC TABLET PO SCH (08:54)
[2021-06-22] MEDS: FAMOTIDINE 20 MG TABLET PO SCH (08:54)
[2021-06-22] MEDS: ASCORBIC ACID 500 MG TABLET PO SCH ×2 (08:54→20:38)
[2021-06-22] MEDS: LISINOPRIL 20 MG TABLET PO SCH (08:54)
[2021-06-22] MEDS: PREGABALIN 75 MG CAPSULE PO SCH ×2 (08:54→20:39)
[2021-06-22] MEDS: OMEPRAZOLE 20 MG CAPSULE PO SCH (08:55)
[2021-06-22 09:02] LABS: BASOPHILS % (AUTO) 0.7 % (0.0-2.0); EOSINOPHILS % (AUTO) 5.4 % (1.0-6.0); HEMATOCRIT 33.8 % (36-46); HEMOGLOBIN 11.2 g/dL (12.0-16.0); LYMPHOCYTES % (AUTO) 45.3 % (22.0-44.0); MEAN CORPUSCULAR HEMOGLOBIN 27.6 pg (26.0-34.0); MEAN CORPUSCULAR HGB CONC 33.1 G/dL (31.0-37.0); MEAN CORPUSCULAR VOLUME 84 fL (80-100); MONOCYTES # (AUTO) 0.3 K/uL (0.1-1.0); MONOCYTES % (AUTO) 6.3 % (2.0-9.0); NEUTROPHILS # (AUTO) 1.9 K/uL (1.8-7.7); NEUTROPHILS % (AUTO) 42.3 % (40.0-70.0); PLATELET COUNT (AUTO) 280 K/uL (150-450); RED BLOOD CELL COUNT(AUTO) 4.05 MIL/uL (4.00-5.20); RED CELL DISTRIBUTION WIDTH 15.4 % (11.5-14.5)
[2021-06-22] MEDS: FLUoxetine HCL 20 MG CAPSULE PO SCH (09:14)
[2021-06-22 09:27] LABS: ANION GAP 8 mmol/L (8-16); CARBON DIOXIDE 30 mmol/L (22-29); CHLORIDE 106 mmol/L (98-107); CREATININE 0.66 mg/dL (0.60-1.30); GLUCOSE,RANDOM 143 mg/dL (70-110); SODIUM SERUM 144 mmol/L (136-145); UREA NITROGEN, BLOOD 18 mg/dL (7-18)
[2021-06-22 09:28] LABS: CALCIUM, TOTAL 8.8 mg/dL (8.8-10.5); GLOMERULAR FILTR. RATE CALC > 60 mL/min (>60)
[2021-06-22 17:00] VITALS: BP 154/78
[2021-06-22 19:40] VITALS: BP 127/68
[2021-06-22 20:21] LABS: GLUCOMETER DEV NAME(LOC) 6N.2; GLUCOSE,POINT OF CARE 139 MG/DL (70-110)
[2021-06-22 20:21] LABS: GLUCOMETER DEV NAME(LOC) 6N.1; GLUCOSE,POINT OF CARE 153 MG/DL (70-110)
[2021-06-22] MEDS: ZOLPIDEM TARTRATE 5 MG TABLET PO PRN (23:01)
[2021-06-23] MEDS: SODIUM CHLORIDE 0.9% 1,000 ML IV SCH ×3 (00:19→15:15)
[2021-06-23 00:46] LABS: GLUCOMETER DEV NAME(LOC) 6N.2; GLUCOSE,POINT OF CARE 169 MG/DL (70-110)
[2021-06-23] MEDS: CeFAZolin 2 GM/DEXTROSE 50 ML IV SCH ×3 (02:05→18:24)
[2021-06-23 05:06] VITALS: BP 113/65
[2021-06-23] MEDS: INSULIN LISPRO 100 UNITS/ML SQ PRN ×3 (05:45→20:37)
[2021-06-23 07:16] LABS: GLUCOMETER DEV NAME(LOC) 6N.1; GLUCOSE,POINT OF CARE 152 MG/DL (70-110)
[2021-06-23] MEDS: OXYGEN THERAPY IH SCH ×2 (07:58→20:43)
[2021-06-23] MEDS: BISMUTH SUBSALICYLATE 524 MG/30 ML SUSPENSION UDCUP PO PRN ×3 (08:37→21:17)
[2021-06-23] MEDS: MULTIVITAMINS WITH MINERALS, THERAPEUTIC TABLET PO SCH (08:38)
[2021-06-23] MEDS: PREGABALIN 75 MG CAPSULE PO SCH ×2 (08:39→20:34)
[2021-06-23] MEDS: FLUoxetine HCL 20 MG CAPSULE PO SCH (08:40)
[2021-06-23] MEDS: LACTOBACILLUS ACIDOPHILUS/BULGARICUS TABLET PO SCH ×2 (08:40→20:34)
[2021-06-23] MEDS: LISINOPRIL 20 MG TABLET PO SCH (08:40)
[2021-06-23] MEDS: HYDROCHLOROTHIAZIDE 25 MG TABLET PO SCH (08:40)
[2021-06-23] MEDS: FLUTICASONE PROPIONATE 50 MCG/SPRAY 16 GM NASAL SPRAY NASAL SCH ×2 (08:41→20:35)
[2021-06-23] MEDS: ASCORBIC ACID 500 MG TABLET PO SCH ×2 (08:41→20:34)
[2021-06-23] MEDS: OMEPRAZOLE 20 MG CAPSULE PO SCH (08:41)
[2021-06-23] MEDS: OxyCODONE HCL/ACETAMINOPHEN 5-325 MG TABLET PO PRN ×3 (08:42→20:34)
[2021-06-23] MEDS: HEPARIN SODIUM,PORCINE 5,000 UNITS/ML VIAL SQ SCH ×3 (08:44→23:13)
[2021-06-23] MEDS: DOCUSATE SODIUM 100 MG CAPSULE PO SCH ×2 (08:45→20:24)
[2021-06-23] MEDS: FAMOTIDINE 20 MG TABLET PO SCH (08:53)
[2021-06-23 12:37] LABS: GLUCOMETER DEV NAME(LOC) 6N.2; GLUCOSE,POINT OF CARE 171 MG/DL (70-110)
[2021-06-23] MEDS: TIOTROPIUM BROMIDE 18 MCG/INH HANDIHALER [5] IH SCH (13:24)
[2021-06-23 14:58] VITALS: BP 118/68
[2021-06-23 19:55] VITALS: BP 108/64
[2021-06-23 20:01] LABS: GLUCOMETER DEV NAME(LOC) 6N.2; GLUCOSE,POINT OF CARE 106 MG/DL (70-110)
[2021-06-23 20:01] LABS: GLUCOMETER DEV NAME(LOC) 6N.2; GLUCOSE,POINT OF CARE 288 MG/DL (70-110)
[2021-06-23] MEDS: ZOLPIDEM TARTRATE 5 MG TABLET PO PRN (21:34)
[2021-06-24] MEDS: CeFAZolin 2 GM/DEXTROSE 50 ML IV SCH ×2 (01:14→09:21)
[2021-06-24] MEDS: SODIUM CHLORIDE 0.9% 1,000 ML IV SCH ×2 (01:15→09:27)
[2021-06-24] MEDS: OxyCODONE HCL/ACETAMINOPHEN 5-325 MG TABLET PO PRN ×3 (04:47→13:29)
[2021-06-24] MEDS: BISMUTH SUBSALICYLATE 524 MG/30 ML SUSPENSION UDCUP PO PRN (04:48)
[2021-06-24] MEDS: INSULIN LISPRO 100 UNITS/ML SQ PRN ×2 (06:09→12:02)
[2021-06-24 06:22] LABS: GLUCOMETER DEV NAME(LOC) 6N.1; GLUCOSE,POINT OF CARE 162 MG/DL (70-110)
[2021-06-24 07:19] VITALS: BP 114/68
[2021-06-24] MEDS: OXYGEN THERAPY IH SCH (08:00)
[2021-06-24] MEDS: HEPARIN SODIUM,PORCINE 5,000 UNITS/ML VIAL SQ SCH (08:30)
[2021-06-24] MEDS: PREGABALIN 75 MG CAPSULE PO SCH (08:31)
[2021-06-24] MEDS: LACTOBACILLUS ACIDOPHILUS/BULGARICUS TABLET PO SCH (08:31)
[2021-06-24] MEDS: DOCUSATE SODIUM 100 MG CAPSULE PO SCH (08:31)
[2021-06-24] MEDS: OMEPRAZOLE 20 MG CAPSULE PO SCH (08:32)
[2021-06-24] MEDS: HYDROCHLOROTHIAZIDE 25 MG TABLET PO SCH (08:32)
[2021-06-24] MEDS: FLUoxetine HCL 20 MG CAPSULE PO SCH (08:32)
[2021-06-24] MEDS: FAMOTIDINE 20 MG TABLET PO SCH (08:32)
[2021-06-24] MEDS: ASCORBIC ACID 500 MG TABLET PO SCH (08:32)
[2021-06-24] MEDS: LISINOPRIL 20 MG TABLET PO SCH (08:32)
[2021-06-24] MEDS: MULTIVITAMINS WITH MINERALS, THERAPEUTIC TABLET PO SCH (08:32)
[2021-06-24] MEDS: TIOTROPIUM BROMIDE 18 MCG/INH HANDIHALER [5] IH SCH (09:20)
[2021-06-24] MEDS: FLUTICASONE PROPIONATE 50 MCG/SPRAY 16 GM NASAL SPRAY NASAL SCH (09:20)
[2021-06-24 15:03] VITALS: BP 131/78
[2021-06-24] MEDS ORDERED: ASCO500 PO (17:23)
[2021-06-24] MEDS ORDERED: CEFA2IV IV (17:23)
[2021-06-24] MEDS ORDERED: DOCU-270 PO (17:24)
[2021-06-24] MEDS ORDERED: FAMO20 PO (17:24)
[2021-06-24] MEDS ORDERED: HYDR25TA2 PO (17:25)
[2021-06-24] MEDS ORDERED: HEPA500018 SQ (17:25)
[2021-06-24] MEDS ORDERED: LACT1TAB20 PO (17:26)
[2021-06-24] MEDS ORDERED: MULT-248 PO (17:27)
[2021-06-24] MEDS ORDERED: LISI-894 PO (17:27)
[2021-06-24] MEDS ORDERED: OMEP20 PO (17:28)
[2021-06-24] MEDS ORDERED: TIOT185 IH (17:29)
[2021-06-24] MEDS ORDERED: BISM525O10 PO (17:30)
[2021-06-24] MEDS ORDERED: ACET-784 PO (17:30)
[2021-06-24] MEDS ORDERED: INSU100V39 SQ (17:33)
[2021-06-24] MEDS ORDERED: OXYC-38 PO (17:34)
[2021-06-24 20:12] LABS: GLUCOMETER DEV NAME(LOC) 6N.2; GLUCOSE,POINT OF CARE 125 MG/DL (70-110)
== END 2021-06-24 16:55 | DRG 314 ==
LOC: EMS 16:47 → 6S 06-08 19:27 → 6N 06-08 20:35 → 5S 06-11 06:22 → 6N 06-12 14:25 → 6S 06-16 17:05 → 6N 06-17 00:27
PROVIDERS: ADMIT Internal Medicine; ATTEND Internal Medicine
PROC: 0Y6R0Z1 Detachment at Right 2nd Toe, High, Open Approach (ICD-10-PCS; principal; 2021-06-09 12:15)
DX: E11.69 Type 2 diabetes mellitus with other specified complication (principal); E44.0 Moderate protein-calorie malnutrition; R78.81 Bacteremia; E11.40 Type 2 diabetes mellitus with diabetic neuropathy, unspecified; M86.8X7 Other osteomyelitis, ankle and foot; E11.51 Type 2 diabetes mellitus with diabetic peripheral angiopathy without gangrene; L97.519 Non-pressure chronic ulcer of other part of right foot with unspecified severity; B95.61 Methicillin susceptible Staphylococcus aureus infection as the cause of diseases classified elsewhere; E11.621 Type 2 diabetes mellitus with foot ulcer; I10 Essential (primary) hypertension; Z20.822 Contact with and (suspected) exposure to COVID-19; J44.9 Chronic obstructive pulmonary disease, unspecified; K59.00 Constipation, unspecified; Z79.2 Long term (current) use of antibiotics; Z79.4 Long term (current) use of insulin; Z83.3 Family history of diabetes mellitus; Z90.710 Acquired absence of both cervix and uterus; Z68.23 Body mass index [BMI] 23.0-23.9, adult
CPT/HCPCS: 36245; 36569; 71045; 76937; 80048; 80053; 80202; 82962; 83605; 84484; 85007; 85025; 85027; 87040; 87070; 87075; 87077; 87081; 87205; 88305; 93005; 93306; 97116; 97162; 97530; 99285; G0238; J0690; J1644; J1815; J2250; J2270; J2543; J2704; J3010; J3370; J3490; J7030; J7040; J7060; J7120; 36415-L1; 36415-TC; Z7610

== ENCOUNTER 2021-11-01 14:27 | Emergency (ER) | payer OTHER ==
[~2021-11-01] VITALS: Ht 154.9 cm; Wt 54.5 kg
[~2021-11-01 14:27] MED LIST: ACET-784 PO; ASCO500 PO; ATOR-2 PO; BISM525O10 PO; CEFA2IV IV; DOCU-385 PO; FAMO20 PO; FLUO20CA36 PO; FLUT16H NASAL; FLUT1AER5 IH; HEPA500018 SQ; HYDR-4870 PO; INSU100V39 SQ; LACT1TAB20 PO; LISI-894 PO; MULT-248 PO; OMEP20 PO; OXYC-38 PO; PREG75 PO; TIOT185 IH
[2021-11-01] MEDS ORDERED: ACETAMINOPHEN 325 MG TABLET PO ONE (18:15)
[2021-11-01 18:31] VITALS: BP 111/55
== END 2021-11-01 19:56 | disposition home or self-care (01) ==
LOC: EMS 14:27
DX: S52.134A Nondisplaced fracture of neck of right radius, initial encounter for closed fracture (principal); E11.9 Type 2 diabetes mellitus without complications; F41.9 Anxiety disorder, unspecified; I10 Essential (primary) hypertension; M79.7 Fibromyalgia; W19.XXXA Unspecified fall, initial encounter; Y93.89 Activity, other specified; Y92.89 Other specified places as the place of occurrence of the external cause; Y99.8 Other external cause status
CPT/HCPCS: 29105; 99283

== ENCOUNTER 2022-03-21 12:20 | Inpatient (IN) | payer OTHER ==
[~2022-03-21] VITALS: Ht 154.9 cm; Wt 66.9 kg
[~2022-03-21 12:20] MED LIST changes: -FLUT16H NASAL; +FLUT16SP NASAL; -HYDR-4870 PO; +HYDR25TA2 PO
[2022-03-21] MEDS ORDERED: 0.9% SODIUM CHLORIDE 10 ML SYRINGE IVP PRN (12:45)
[2022-03-21] MEDS ORDERED: ACETAMINOPHEN 325 MG TABLET PO PRN ×2 (12:45→16:30)
[2022-03-21] MEDS ORDERED: PIPERACILLIN/TAZO 3.375 GM/D5W 50 ML IV ONE (12:45)
[2022-03-21] MEDS ORDERED: ONDANSETRON HCL 4 MG/2 ML VIAL IVP PRN ×2 (12:45→16:30)
[2022-03-21 13:10] LABS: BASOPHILS % (AUTO) 0.7 % (0.0-2.0); EOSINOPHILS % (AUTO) 3.6 % (1.0-6.0); HEMATOCRIT 40.2 % (36-46); HEMOGLOBIN 13.4 g/dL (12.0-16.0); LYMPHOCYTES # (AUTO) 2.3 K/uL (1.0-4.8); LYMPHOCYTES % (AUTO) 31.2 % (22.0-44.0); MEAN CORPUSCULAR HEMOGLOBIN 28.6 pg (26.0-34.0); MEAN CORPUSCULAR HGB CONC 33.4 G/dL (31.0-37.0); MEAN CORPUSCULAR VOLUME 86 fL (80-100); MONOCYTES # (AUTO) 0.4 K/uL (0.1-1.0); MONOCYTES % (AUTO) 5.1 % (2.0-9.0); NEUTROPHILS # (AUTO) 4.3 K/uL (1.8-7.7); NEUTROPHILS % (AUTO) 59.4 % (40.0-70.0); PLATELET COUNT (AUTO) 393 K/uL (150-450); RED CELL DISTRIBUTION WIDTH 12.8 % (11.5-14.5)
[2022-03-21 13:21] LABS: CALCIUM, TOTAL 9.8 mg/dL (8.8-10.5); CREATININE 1.01 mg/dL (0.60-1.30); POTASSIUM 3.4 mmol/L (3.5-5.1)
[2022-03-21 13:24] LABS: PROTHROMBIN TIME 10.3 SEC (9.4-11.6)
[2022-03-21 13:26] LABS: ALBUMIN 3.1 g/dL (3.4-5.0); BILIRUBIN,TOTAL 0.3 mg/dL (0.1-1.0); C-REACTIVE PROTEIN QUANT 1.75 mg/dL (0.00-0.30); TOTAL PROTEIN, SERUM 7.9 g/dL (6.4-8.2)
[2022-03-21 13:28] LABS: LACTIC ACID 1.2 mmol/L (0.4-2.0)
[2022-03-21 14:10] LABS: COVID AG,FIA SOURCE NASOPHARYNGEAL
[2022-03-21] MEDS ORDERED: GADOTERATE MEGLUMINE 10 MMOL/20 ML VIAL IVP ONE (14:16)
[2022-03-21 14:23] LABS: ERYTHROCYTE SEDIMENTATION RATE 85 MM/HR (0-20)
[2022-03-21] MEDS ORDERED: POTASSIUM CHLORIDE 10% 40 MEQ/30 ML LIQUID UDCUP PO ONE (14:45)
[2022-03-21] MEDS ORDERED: MORPHINE SULFATE 2 MG/ML SYRINGE IVP PRN (16:30)
[2022-03-21] MEDS ORDERED: BISACODYL 10 MG RECTAL RECTAL SUPPOSITORY PR PRN (16:30)
[2022-03-21] MEDS ORDERED: DEXTROSE 50%-WATER 25 GM/50 ML SYRINGE IVP PRN (16:30)
[2022-03-21] MEDS ORDERED: ZOLPIDEM TARTRATE 5 MG TABLET PO PRN (16:30)
[2022-03-21] MEDS ORDERED: MAGNESIUM HYDROXIDE SUSPENSION 30 ML UDCUP PO PRN (16:30)
[2022-03-21] MEDS ORDERED: OMEPRAZOLE 20 MG CAPSULE PO PRN (16:30)
[2022-03-21] MEDS ORDERED: FAMO20 PO (17:03)
[2022-03-21] MEDS ORDERED: LISI-893 PO (17:05)
[2022-03-21] MEDS ORDERED: ATOR40TA28 PO (17:05)
[2022-03-21] MEDS: ATORVASTATIN CALCIUM 40 MG TABLET PO SCH (20:15)
[2022-03-21] MEDS: DOCUSATE SODIUM 100 MG CAPSULE PO SCH (20:15)
[2022-03-21] MEDS: FAMOTIDINE 20 MG TABLET PO SCH (20:15)
[2022-03-21] MEDS: FLUTICASONE PROPIONATE 50 MCG/SPRAY 16 GM NASAL SPRAY NASAL SCH (21:00)
[2022-03-21] MEDS: INSULIN LISPRO 100 UNITS/ML SQ PRN (22:26)
[2022-03-21 22:30] VITALS: BP 143/74
[2022-03-21 23:31] LABS: GLUCOMETER DEV NAME(LOC) 6N.2B; GLUCOSE,POINT OF CARE 168 MG/DL (70-110)
[2022-03-21] MEDS: ASCORBIC ACID 500 MG TABLET PO SCH (23:35)
[2022-03-21] MEDS: PREGABALIN 75 MG CAPSULE PO SCH (23:35)
[2022-03-22 04:00] VITALS: BP 119/52
[2022-03-22] MEDS: INSULIN LISPRO 100 UNITS/ML SQ PRN ×4 (05:48→20:20)
[2022-03-22] MEDS ORDERED: SODIUM CHLORIDE 0.9% 1,000 ML IV ONE (06:00)
[2022-03-22] MEDS ORDERED: BUPIVACAINE HCL/PF 0.25% 30 ML VIAL ONE (06:05)
[2022-03-22] MEDS ORDERED: LIDOCAINE/PF 1% 30 ML VIAL ONE (06:05)
[2022-03-22] MEDS ORDERED: SODIUM CL IRRIG SOLN BAG 3,000 ML IRRIG ONE (06:05)
[2022-03-22] MEDS ORDERED: VANCOMYCIN HCL 1 GM/VIAL ONE ×2 (06:05→06:35)
[2022-03-22 06:26] LABS: GLUCOMETER DEV NAME(LOC) 6N.2B; GLUCOSE,POINT OF CARE 169 MG/DL (70-110)
[2022-03-22 07:47] LABS: BILIRUBIN,URINE NEGATIVE (NEGATIVE); GLUCOSE, URINE (UA) 300-500 mg/dL (NEGATIVE); KETONES,URINE NEGATIVE (NEGATIVE); LEUKOCYTE ESTERASE ,URINE LARGE (NEGATIVE); NITRATE,URINE NEGATIVE (NEGATIVE); OCCULT BLOOD,URINE SMALL (NEGATIVE); PH,URINE 6.5 (5.0-8.0); PROTEIN,URINE 300-600,SEE CONFIRM mg/dL (NEGATIVE); SPECIFIC GRAVITIY, URINE 1.021 (1.003-1.030); UROBILINOGEN,URINE <=1.0 mg/dL (<=1.0)
[2022-03-22] MEDS ORDERED: FentaNYL CITRATE PF 100 MCG/2 ML VIAL IVP PRN (08:00)
[2022-03-22] MEDS: OXYGEN THERAPY IH SCH ×2 (08:00→20:22)
[2022-03-22] MEDS: HEPARIN SODIUM,PORCINE 5,000 UNITS/ML VIAL SQ SCH ×4 (08:00→23:28)
[2022-03-22 08:23] VITALS: BP 127/71
[2022-03-22 08:25] LABS: APPEARANCE,URINE HAZY (CLEAR)
[2022-03-22 08:27] LABS: SULFOSALICYLIC ACID,URINE 3+ (Negative)
[2022-03-22 08:28] LABS: BACTERIA,URINE Few /HPF (None Seen); FINE GRANULAR CASTS,URINE 0-2 /LPF (None Seen); RENAL EPITHELIAL CELLS,URINE Few /LPF (None Seen); WBC,URINE 51-100 /HPF (0-5)
[2022-03-22] MEDS: HYDROCHLOROTHIAZIDE 25 MG TABLET PO SCH (09:00)
[2022-03-22] MEDS: FAMOTIDINE 20 MG TABLET PO SCH ×2 (09:00→20:22)
[2022-03-22] MEDS: ASCORBIC ACID 500 MG TABLET PO SCH ×2 (09:00→20:21)
[2022-03-22] MEDS: LISINOPRIL 10 MG TABLET PO SCH (09:00)
[2022-03-22] MEDS: FLUoxetine HCL 20 MG CAPSULE PO SCH (09:00)
[2022-03-22] MEDS: PREGABALIN 75 MG CAPSULE PO SCH ×2 (09:00→20:21)
[2022-03-22] MEDS: PANTOPRAZOLE SODIUM 40 MG DR TABLET PO SCH (09:00)
[2022-03-22] MEDS: FLUTICASONE PROPIONATE 50 MCG/SPRAY 16 GM NASAL SPRAY NASAL SCH ×2 (09:01→20:22)
[2022-03-22] MEDS: DOCUSATE SODIUM 100 MG CAPSULE PO SCH ×2 (09:01→20:21)
[2022-03-22] MEDS: TIOTROPIUM BROMIDE 18 MCG/INH HANDIHALER [5] IH SCH (09:01)
[2022-03-22 12:00] VITALS: BP 119/71
[2022-03-22 15:32] LABS: GLUCOMETER DEV NAME(LOC) 6N.2B; GLUCOSE,POINT OF CARE 159 MG/DL (70-110)
[2022-03-22 16:06] VITALS: BP 129/72
[2022-03-22] MEDS: HYDROCODONE/ACETAMINOPHEN 5-325 MG TABLET PO PRN ×2 (16:53→20:40)
[2022-03-22 19:20] VITALS: BP 136/84
[2022-03-22] MEDS: ATORVASTATIN CALCIUM 40 MG TABLET PO SCH (20:21)
[2022-03-23 00:41] LABS: GLUCOMETER DEV NAME(LOC) 6N.2B; GLUCOSE,POINT OF CARE 156 MG/DL (70-110)
[2022-03-23 00:42] LABS: GLUCOMETER DEV NAME(LOC) 6N.2B; GLUCOSE,POINT OF CARE 188 MG/DL (70-110)
[2022-03-23 04:07] VITALS: BP 125/74
[2022-03-23] MEDS ORDERED: MIDAZOLAM HCL 2 MG/2 ML VIAL IVP ONE (06:51)
[2022-03-23] MEDS ORDERED: LIDOCAINE/PF 2% 5 ML VIAL IM ONE (06:51)
[2022-03-23] MEDS ORDERED: ONDANSETRON HCL 4 MG/2 ML VIAL IVP ONE (06:51)
[2022-03-23] MEDS ORDERED: FentaNYL CITRATE PF 100 MCG/2 ML VIAL IVP ONE (06:51)
[2022-03-23] MEDS ORDERED: PROPOFOL 1% 20 ML VIAL IVP ONE (06:51)
[2022-03-23 07:55] VITALS: BP 117/65
[2022-03-23] MEDS: OXYGEN THERAPY IH SCH ×2 (08:00→20:00)
[2022-03-23] MEDS: HEPARIN SODIUM,PORCINE 5,000 UNITS/ML VIAL SQ SCH ×3 (08:17→23:19)
[2022-03-23] MEDS: FAMOTIDINE 20 MG TABLET PO SCH ×2 (08:17→20:58)
[2022-03-23] MEDS: PREGABALIN 75 MG CAPSULE PO SCH ×2 (08:17→21:09)
[2022-03-23] MEDS: ASCORBIC ACID 500 MG TABLET PO SCH ×2 (08:17→20:57)
[2022-03-23] MEDS: HYDROCHLOROTHIAZIDE 25 MG TABLET PO SCH (08:17)
[2022-03-23] MEDS: LISINOPRIL 10 MG TABLET PO SCH (08:17)
[2022-03-23] MEDS: PANTOPRAZOLE SODIUM 40 MG DR TABLET PO SCH (08:17)
[2022-03-23] MEDS: DOCUSATE SODIUM 100 MG CAPSULE PO SCH ×2 (08:18→20:58)
[2022-03-23] MEDS: HYDROCODONE/ACETAMINOPHEN 5-325 MG TABLET PO PRN ×4 (08:22→23:28)
[2022-03-23] MEDS: FLUoxetine HCL 20 MG CAPSULE PO SCH (08:22)
[2022-03-23] MEDS: TIOTROPIUM BROMIDE 18 MCG/INH HANDIHALER [5] IH SCH (08:22)
[2022-03-23] MEDS: FLUTICASONE PROPIONATE 50 MCG/SPRAY 16 GM NASAL SPRAY NASAL SCH ×2 (10:24→20:58)
[2022-03-23 16:01] VITALS: BP 106/41
[2022-03-23] MEDS: INSULIN LISPRO 100 UNITS/ML SQ PRN ×2 (17:21→21:20)
[2022-03-23 18:16] LABS: GLUCOMETER DEV NAME(LOC) 6N.2B; GLUCOSE,POINT OF CARE 136 MG/DL (70-110)
[2022-03-23 19:16] VITALS: BP 107/58
[2022-03-23] MEDS: ATORVASTATIN CALCIUM 40 MG TABLET PO SCH (20:58)
[2022-03-23 22:07] LABS: GLUCOMETER DEV NAME(LOC) 6N.1; GLUCOSE,POINT OF CARE 208 MG/DL (70-110)
[2022-03-23 22:07] LABS: GLUCOMETER DEV NAME(LOC) 6N.1; GLUCOSE,POINT OF CARE 281 MG/DL (70-110)
[2022-03-24 04:36] VITALS: BP 98/61
[2022-03-24] MEDS: HYDROCODONE/ACETAMINOPHEN 5-325 MG TABLET PO PRN ×5 (05:08→23:59)
[2022-03-24] MEDS: INSULIN LISPRO 100 UNITS/ML SQ PRN ×3 (06:30→20:05)
[2022-03-24 08:00] VITALS: BP 108/70
[2022-03-24] MEDS: OXYGEN THERAPY IH SCH (08:00)
[2022-03-24 08:17] LABS: GLUCOMETER DEV NAME(LOC) 6N.2B; GLUCOSE,POINT OF CARE 193 MG/DL (70-110)
[2022-03-24] MEDS: HYDROCHLOROTHIAZIDE 25 MG TABLET PO SCH (08:38)
[2022-03-24] MEDS: HEPARIN SODIUM,PORCINE 5,000 UNITS/ML VIAL SQ SCH ×3 (08:39→23:59)
[2022-03-24] MEDS: FAMOTIDINE 20 MG TABLET PO SCH ×2 (08:39→20:03)
[2022-03-24] MEDS: FLUoxetine HCL 20 MG CAPSULE PO SCH (08:39)
[2022-03-24] MEDS: PREGABALIN 75 MG CAPSULE PO SCH ×2 (08:39→20:03)
[2022-03-24] MEDS: ASCORBIC ACID 500 MG TABLET PO SCH ×2 (08:39→20:03)
[2022-03-24] MEDS: PANTOPRAZOLE SODIUM 40 MG DR TABLET PO SCH (08:39)
[2022-03-24] MEDS: LISINOPRIL 10 MG TABLET PO SCH (08:39)
[2022-03-24] MEDS: TIOTROPIUM BROMIDE 18 MCG/INH HANDIHALER [5] IH SCH (08:40)
[2022-03-24] MEDS: FLUTICASONE PROPIONATE 50 MCG/SPRAY 16 GM NASAL SPRAY NASAL SCH ×2 (08:40→20:02)
[2022-03-24] MEDS: DOCUSATE SODIUM 100 MG CAPSULE PO SCH ×2 (08:41→19:54)
[2022-03-24 14:21] LABS: GLUCOMETER DEV NAME(LOC) 6N.1; GLUCOSE,POINT OF CARE 181 MG/DL (70-110)
[2022-03-24] MEDS ORDERED: SODIUM CHLORIDE 0.9% 500 ML IV ONE (15:38)
[2022-03-24 16:00] VITALS: BP 127/69
[2022-03-24] MEDS ORDERED: VANCOMYCIN HCL 1.25 GM in DEXTROSE 5%-WATER 250 ML IV ONE (16:00)
[2022-03-24 17:56] LABS: GLUCOMETER DEV NAME(LOC) 6N.1; GLUCOSE,POINT OF CARE 135 MG/DL (70-110)
[2022-03-24 19:44] VITALS: BP 123/79
[2022-03-24] MEDS: ATORVASTATIN CALCIUM 40 MG TABLET PO SCH (20:03)
[2022-03-25 03:01] LABS: GLUCOMETER DEV NAME(LOC) 6N.2B; GLUCOSE,POINT OF CARE 282 MG/DL (70-110)
[2022-03-25 05:20] VITALS: BP 120/55
[2022-03-25] MEDS: HYDROCODONE/ACETAMINOPHEN 5-325 MG TABLET PO PRN ×3 (05:52→15:25)
[2022-03-25] MEDS: INSULIN LISPRO 100 UNITS/ML SQ PRN ×2 (05:54→12:50)
[2022-03-25 07:08] LABS: BASOPHILS % (AUTO) 0.4 % (0.0-2.0); EOSINOPHILS % (AUTO) 3.4 % (1.0-6.0); HEMATOCRIT 32.7 % (36-46); HEMOGLOBIN 10.9 g/dL (12.0-16.0); LYMPHOCYTES # (AUTO) 1.8 K/uL (1.0-4.8); LYMPHOCYTES % (AUTO) 22.9 % (22.0-44.0); MEAN CORPUSCULAR HEMOGLOBIN 28.5 pg (26.0-34.0); MEAN CORPUSCULAR HGB CONC 33.3 G/dL (31.0-37.0); MEAN CORPUSCULAR VOLUME 86 fL (80-100); MONOCYTES # (AUTO) 0.5 K/uL (0.1-1.0); MONOCYTES % (AUTO) 6.9 % (2.0-9.0); NEUTROPHILS # (AUTO) 5.2 K/uL (1.8-7.7); NEUTROPHILS % (AUTO) 66.4 % (40.0-70.0); PLATELET COUNT (AUTO) 326 K/uL (150-450); RED BLOOD CELL COUNT(AUTO) 3.82 MIL/uL (4.00-5.20); RED CELL DISTRIBUTION WIDTH 12.5 % (11.5-14.5)
[2022-03-25 07:25] VITALS: BP 106/54
[2022-03-25 07:37] LABS: ALBUMIN 2.1 g/dL (3.4-5.0); BILIRUBIN,TOTAL 0.2 mg/dL (0.1-1.0); CALCIUM, TOTAL 9.1 mg/dL (8.8-10.5); CREATININE 1.09 mg/dL (0.60-1.30); POTASSIUM 4.2 mmol/L (3.5-5.1); TOTAL PROTEIN, SERUM 6.1 g/dL (6.4-8.2)
[2022-03-25 07:42] LABS: GLUCOMETER DEV NAME(LOC) 6N.2B; GLUCOSE,POINT OF CARE 173 MG/DL (70-110)
[2022-03-25] MEDS: OXYGEN THERAPY IH SCH (08:00)
[2022-03-25] MEDS ORDERED: VANCOMYCIN HCL 750 MG in DEXTROSE 5%-WATER 250 ML IV SCH (08:00)
[2022-03-25] MEDS: HYDROCHLOROTHIAZIDE 25 MG TABLET PO SCH (08:25)
[2022-03-25] MEDS: PREGABALIN 75 MG CAPSULE PO SCH (08:25)
[2022-03-25] MEDS: FAMOTIDINE 20 MG TABLET PO SCH (08:25)
[2022-03-25] MEDS: PANTOPRAZOLE SODIUM 40 MG DR TABLET PO SCH (08:25)
[2022-03-25] MEDS: TIOTROPIUM BROMIDE 18 MCG/INH HANDIHALER [5] IH SCH (08:25)
[2022-03-25] MEDS: LISINOPRIL 10 MG TABLET PO SCH (08:26)
[2022-03-25] MEDS: FLUoxetine HCL 20 MG CAPSULE PO SCH (08:26)
[2022-03-25] MEDS: DOCUSATE SODIUM 100 MG CAPSULE PO SCH (08:26)
[2022-03-25] MEDS: FLUTICASONE PROPIONATE 50 MCG/SPRAY 16 GM NASAL SPRAY NASAL SCH (08:26)
[2022-03-25] MEDS: ASCORBIC ACID 500 MG TABLET PO SCH (08:26)
[2022-03-25] MEDS: HEPARIN SODIUM,PORCINE 5,000 UNITS/ML VIAL SQ SCH ×2 (08:27→15:50)
[2022-03-25] MEDS ORDERED: AMOX1TAB16 PO (10:34)
[2022-03-25 15:25] VITALS: BP 110/60
[2022-03-25 16:21] LABS: GLUCOMETER DEV NAME(LOC) 6N.1; GLUCOSE,POINT OF CARE 243 MG/DL (70-110)
[2022-03-25] MEDS ORDERED: SODIUM CL IRRIG SOLN BOTTLE 250 ML IRRIG ONE (16:35)
== END 2022-03-25 17:23 | disposition home health service (06) | DRG 314 ==
LOC: EMS 12:25 → 6S 20:21
PROVIDERS: ADMIT Internal Medicine; ATTEND Internal Medicine
PROC: 0QBQ0ZX Excision of Right Toe Phalanx, Open Approach, Diagnostic (ICD-10-PCS; 2022-03-22)
PROC: 0Y6T0Z0 Detachment at Right 3rd Toe, Complete, Open Approach (ICD-10-PCS; principal; 2022-03-22 07:10)
DX: E11.40 Type 2 diabetes mellitus with diabetic neuropathy, unspecified (principal); M86.171 Other acute osteomyelitis, right ankle and foot; E11.69 Type 2 diabetes mellitus with other specified complication; E11.65 Type 2 diabetes mellitus with hyperglycemia; E87.6 Hypokalemia; I10 Essential (primary) hypertension; J44.9 Chronic obstructive pulmonary disease, unspecified; E78.5 Hyperlipidemia, unspecified; K21.9 Gastro-esophageal reflux disease without esophagitis; F41.9 Anxiety disorder, unspecified; M79.7 Fibromyalgia; Z89.421 Acquired absence of other right toe(s); Z90.710 Acquired absence of both cervix and uterus; Z79.899 Other long term (current) drug therapy; Z79.4 Long term (current) use of insulin
CPT/HCPCS: 73723; 80053; 81001; 81002; 82962; 83605; 83690; 84484; 85025; 85610; 85651; 86140; 87040; 87070; 87081; 87086; 87186; 87205; 88305; 88307; 88311; 93005; 99285; J1644; J2250; J2270; J2405; J2543; J2704; J3010; J3370; J3490; J7030; J7040; J7060